=== PATIENT | male | born 1965 | race Caucasian/White ===

== ENCOUNTER 2016-11-30 09:43 | Emergency (ER) | payer BC ==
[2016-11-30] MEDS ORDERED: Tetracaine 0.5% OPTH.SOL 4 ML* 1 DROP BTL LEFT EYE ONE (10:53)
[2016-11-30] MEDS ORDERED: Fluorescein Sodium TOPICAL* 1 MG TEST OPHTHALMIC ONE (10:54)
[2016-11-30] MEDS ORDERED: Eye Irrigation Solution 30 ML BOTTLE LEFT EYE ONE (10:54)
--- NOTE | 2016-11-30 11:21 | UC ---
Eye Complaint HPI - History of Current Complaint Chief Complaint: UCEye Stated Complaint: FB IN EYE Time Seen by Provider: 11/30/16 10:50 Hx Obtained From: Patient Onset/Duration: Sudden Onset - started yesterday while working on car, something went into eye Timing: Constant Severity Initially: Mild Severity Currently: Moderate Pain Scale Used: 0-10 Numeric - 4 Location of Injury: Conjunctiva Character: Sharp, Foreign Body Sensation Aggravating Factor(s): Light, Blinking Alleviating Factor(s): Nothing Associated Signs And Symptoms: Positive: Photophobia, Drainage (Clear). Negative: Vision Impairment Bilateral - Allergies/Home Medications Allergies/Adverse Reactions: Allergies Allergy/AdvReac Type Severity Reaction Status Date / Time No Known Allergies Allergy Verified 11/30/16 10:11 Home Medications: Home Medications Atorvastatin* [Lipitor 20 MG*] 20 mg PO BEDTIME 11/30/16 [History Confirmed ] PMH/Surg Hx/FS Hx/Imm Hx Previously Healthy: Yes Endocrine History: Dyslipidemia - Surgical History Surgical History: None - Family History Known Family History: Positive: None - Social History Occupation: Employed Full-time - fork lift mechanic Lives: With Family Alcohol Use: Rare Substance Use Type: None Smoking Status (MU): Current Every Day Smoker Have You Smoked in the Last Year: Yes Cessation Counseling: Patient Advised to Stop Review of Systems Constitutional: Negative Eyes: Eye Redness, Photophobia ENT: Negative Respiratory: Negative Cardiovascular: Negative Psychological: Negative All Other Systems Reviewed And Are Negative: Yes Physical Exam Triage Information Reviewed: Yes Appearance: Well-Appearing, No Pain Distress, Well-Nourished Vital Signs: Initial Vital Signs Temp 98.4 F 11/30/16 10:08 Pulse 81 11/30/16 10:08 Resp 16 11/30/16 10:08 BP 136/89 11/30/16 10:08 Pulse Ox 96 11/30/16 10:08 Vital Signs Reviewed: Yes Eyes: Positive: Conjunctiva Inflamed - L eye, Discharge - clear Respiratory Exam: Normal Cardiovascular Exam: Normal Neurological Exam: Normal Psychological Exam: Normal Skin Exam: Normal Procedures - Eye Procedure Alcaine Drops Administered: Yes Eye FB Removal: removal w/ needle - small black FB easily removed with tip 18 gauge needle Eye Irrigated w/ Saline (ccs): 20 Eye Complaint Course/Dx - Differential Dx/Diagnosis Differential Diagnosis/HQI/PQRI: Corneal Abrasion, Foreign Body Provider Diagnoses: FB OS Discharge - Discharge Plan Condition: Improved Disposition: HOME Prescriptions: Ofloxacin 0.3%(Ophth)(Nf) [Ocuflox OPTH 0.3%(NF)] 2 drop LEFT EYE QID #1 btl Patient Education Materials: Eye Foreign Body (ED) Referrals: Dayday Burch MD [Primary Care Provider] - Steve Tidwell MD [Medical Doctor] - 2 Days (if no better) Additional Instructions: use eye drops as directed Ibuprofen 800mg every 6-8hours as needed for pain avoid bright lights
== END 2016-11-30 11:26 | disposition home or self-care (01) ==
LOC: UCEAST 09:43
DX: T15.92XA Foreign body on external eye, part unspecified, left eye, initial encounter (principal); X58.XXXA Exposure to other specified factors, initial encounter; Y93.9 Activity, unspecified; Y99.9 Unspecified external cause status; E78.5 Hyperlipidemia, unspecified
CPT/HCPCS: 99212; A9270-GY; G0463